=== PATIENT | male | born 2005 | race Caucasian/White ===

== ENCOUNTER → 2024-09-21 | Emergency (ER) | payer OTHER ==
[~2024-09-21] VITALS: Ht 188 cm; Wt 93.0 kg
[~2024-09-21] MED LIST: ADDERALL 20 MG20 MG
== END | disposition home or self-care (01) ==
LOC: ER 16:00 → EMR PED 16:33
DX: G89.11 Acute pain due to trauma (principal); R51.9 Headache, unspecified